=== PATIENT | male | born 1980 | race Caucasian/White ===

== ENCOUNTER 2018-03-25 22:49 | Emergency (ER) | payer BC, SELFPAY ==
[2018-03-25 22:50] VITALS: BP 128/50; PULSE 70; RESP 15; TEMP 36.5; BMI 31.4
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
[2018-03-25] MEDS: 0.9% Normal Saline 1,000 ML 1000 ML IV (23:20)
[2018-03-25] MEDS: HYDROmorphone 1 MG/ML Syringe IV (23:20)
[2018-03-25] MEDS: proMETHazine 25 MG/ML Syringe 6.25 MG IV (23:20)
[2018-03-25] MEDS: Diphth,Pertuss(Acell),Tet Vac 0.5 ML Vial IM (23:25)
[2018-03-25] MEDS: Cefazolin 1 GM/50 ML BAG IV (23:31)
[2018-03-25 23:32] LABS: Absolute Lymphocyte Count 8.98 X10^3/ul (0.83-4.51); Absolute Neutrophil Count 3.8 X10^3/uL (2.0-7.7); Basophil# 0.06 X10^3/uL; Basophil% 0.4 % (0-1); Eosinophil# 0.25 X10^3/uL; Eosinophils% 1.7 % (0-5); Hematocrit 41.2 % (40-54); Lymphocyte # 8.98 X10^3/ul (4.0); Lymphocyte % 62.7 % (19-41); Mean Corpuscular Volume 88.4 fL (80-94); Mean Platelet Vol. 10.1 fl (6.2-12.0); Monocyte# 1.22 X10^3/uL; Monocyte% 8.5 % (0-10); Neutrophil # 3.78 X10^3/uL (2.7-7.7); Neutrophil % 26.5 % (47-70); Platelet Count 281 K/mm3 (150-450); RBC Distribution Width CV 11.9 % (11.6-14.6); RBC Distribution Width SD 37.9 fl (35.1-43.9); Red Blood Count 4.66 M/mm3 (4.6-6.2); White Blood Count 14.3 K/mm3 (4.4-11.0)
[2018-03-25 23:37] LABS: ALB/GLOB Ratio 1.2 RATIO (0.9-2.4); AST(SGOT) 19 U/L (15-37); Alanine Aminotransfer ALT/SGPT 29 U/L (16-61); Albumin, Serum 3.7 g/dL (3.2-5.0); Alkaline Phosphatase 61 U/L (45-117); Anion Gap 10 (5-15); BUN 19 mg/dL (7-18); BUN/Creat Ratio 17.6 RATIO (10-20); Calcium,Total 8.5 mg/dL (8.5-10.1); Chloride 110 mmol/L (98-107); Creatinine, Serum 1.08 mg/dL (0.70-1.30); EST Glomerular Filtration Rate 82 mL/min (>60); Est Glom Filt Rate - Afr Amer 100 mL/min (>60); Estimated Creatinine Clearance 104.78 ml/min; Globulin 3.1 g/dL (2.2-4.2); Glucose 115 mg/dL (74-106); Potassium 3.4 mmol/L (3.5-5.1); Protein, Total 6.8 g/dL (6.4-8.2); Sodium Level 141 mmol/L (136-145)
[2018-03-25 23:39] LABS: Prothrombin Time (Protime)PT. 13.2 SECONDS (11.7-14.9)
[2018-03-25 23:42] LABS: Differential Indicated SCAN CRITERIA MET; Hemoglobin 13.8 g/dl (13.0-16.5); Mean Corp Hgb Conc 33.5 g/gl (32-36); Mean Corpuscular Hgb 29.6 pg (27.0-32.0); POSITIVE COUNT NO; POSITIVE DIFFERENTIAL YES; POSITIVE MORPHOLOGY NO
[2018-03-26 00:20] LABS: Reactive Lymphocyte 1+
[2018-03-26 01:12] VITALS: BP 115/75; PULSE 71; RESP 18; TEMP 36.9; O2SAT 98
[2018-03-26 01:46] VITALS: BP 115/75; PULSE 71; RESP 18; TEMP 36.9; O2SAT 99
== END 2018-03-26 01:48 | disposition designated cancer center or children's hospital (05) ==
PROVIDERS: Emergency Provider Emergency Medicine
DX: T21.21XA Burn of second degree of chest wall, initial encounter (principal); T23.202A Burn of second degree of left hand, unspecified site, initial encounter; T23.212A Burn of second degree of left thumb (nail), initial encounter; X11.8XXA Contact with other hot tap-water, initial encounter; Y93.G3 Activity, cooking and baking; Y92.000 Kitchen of unspecified non-institutional (private) residence as the place of occurrence of the external cause
CPT/HCPCS: 80053; 85025; 85610; 90715; 96365; 96366; 96375; 99283; J7030; A4216

== ENCOUNTER → 2023-04-19 | Outpatient (CLI) | payer BC, SELFPAY ==
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
== END | disposition home or self-care (01) ==
PROVIDERS: PCP Family Medicine; Referring Provider Nurse Practitioner Primary Care; Visit Provider Nurse Practitioner Primary Care
DX: M79.605 Pain in left leg (principal)
CPT/HCPCS: 76882